=== PATIENT | female | born 1990 | race Caucasian/White ===

== ENCOUNTER 2024-03-29 12:09 | Inpatient (IN) | payer BC ==
[~2024-03-29] VITALS: Ht 157.5 cm; Wt 84.5 kg
[2024-03-30] VITALS (39 sets, daily range): BP systolic 88–158; BP diastolic 54–84; PULSE 68–95; TEMP 97.5–98.1
--- NOTE | 2024-03-30 06:25 | NUR ---
PATIENT AMBULATORY TO UNIT WITH SPOUSE, AR. PATIENT ORIENTED TO LABOR ROOM 4 AND ASSISTED INTO A GOWN. PATIENT DENIES CONTRACTIONS, LEAKING OF FLUID OR VAGINAL BLEEDING AND REPORTS GOOD MOVEMENT. EFM AND TOCO PLACED AND TRACING WELL. ASSESSMENTS COMPLETED, CONSENTS SIGNED.
[2024-03-30] MEDS ORDERED: LR 1,000 ML IV SCH (06:30)
[2024-03-30] MEDS ORDERED: LR & Oxytocin 500 ML IV SCH (06:30)
[2024-03-30] MEDS ORDERED: PRENATAL (06:42)
[2024-03-30] MEDS ORDERED: WOMEN'S DAILY1 TAB PO (06:42)
[2024-03-30] MEDS ORDERED: ASPIRIN 81M81 MG/TA2 PO (06:43)
[2024-03-30] MEDS ORDERED: NATURAL IRON65 MG (06:43)
[2024-03-30 08:11] LABS: HEMOGLOBIN 10.5 g/dl (12.5-16.0); MEAN CELL VOLUME 89 fl (80.0-100.0); MEAN CORPUSCULAR HEMOGLOBIN 29 pg (27-31); MEAN CORPUSCULAR HGB CONC 33 g/dl (33.0-37.0); MEAN PLATELET VOLUME 11.4 fl (7.4-10.4); PLATELET COUNT 184 K/mm3 (130-400); RED BLOOD COUNT 3.61 M/mm3 (4.10-5.30); REDCELL DISTRIBUTION WIDTH-CV 13.9 % (11.5-14.5)
[2024-03-30 08:15] LABS: HEMATOCRIT 32.2 % (37.0-47.0)
--- NOTE | 2024-03-30 08:49 | NUR ---
AT BEDSIDE TO ASSESS PATIENT PROGRESS. SVE 1-2/70/-2, AROM AT THIS TIME.
[2024-03-30 09:25] LABS: BAND 1 % (0-10); EOSINOPHIL 1 % (0-4); LYMPHOCYTE 21 % (20.0-51.0); NEUTROPHILS 75 % (42.0-75.2)
[2024-03-30 09:26] LABS: PLATELET ESTIMATE NORMAL (NORMAL)
--- NOTE | 2024-03-30 09:57 | NUR ---
PATIENT CALLS OUT REQUESTING EPIDURAL, LAWRENCE NOTIFIED, LR BOLUS STARTED
[2024-03-30] MEDS ORDERED: ROPivacaine PF 0.2% 200 ML IV ONE (10:15)
--- NOTE | 2024-03-30 10:30 | NUR ---
1020- ALBAN BRAVO AT BEDSIDEFOR EPIDURAL PLACEMENT. PATIENT SITTING UPRIGHT ON SIDE OF BED. DIFFICULTY TRACING FHR DUE TO MATERNAL POSITION. 1024- SINGLE SHOT ADMINISTERED BY ALBAN BRAVO 1030- PATIENT REPOSITIONED TO WEDGED RIGHT. FHR TRACING RESUMES.
[2024-03-30] MEDS ORDERED: Naloxone 0.4 MG/ML VIAL IV PRN ×2 (11:00→14:30)
[2024-03-30] MEDS ORDERED: diphenhydrAMINE 25 MG CAP PO PRN (11:00)
[2024-03-30] MEDS ORDERED: ePHEDrine 50 MG/10 ML VIAL IV PRN (11:00)
[2024-03-30] MEDS ORDERED: Ondansetron 4 MG/2 ML VIAL IV PRN (11:00)
[2024-03-30] MEDS ORDERED: diphenhydrAMINE 50 MG/ML 1 ML VIAL IV PRN (11:00)
--- NOTE | 2024-03-30 13:18 | NUR ---
EPHEDRINE GIVEN, SEE EMAR. FHR DECELERATING, THIS RN REPOSITIONS PATIENT TO LEFT LATERAL, CONTINUED DECELERATION, PATIENT ASSISTED TO RIGHT LATERAL WITH NO IMPROVEMENT, PATIENT REPOSITIONED TO LEFT LATERAL. LR BOLUS STARTED, PITOCIN OFF. NOTIFIED SEE PHYSICIAN NOTIFICATION
[2024-03-30] MEDS ORDERED: Mag/Al Hydrox/Simeth Susp 30 ML CUP PO PRN (14:30)
[2024-03-30] MEDS ORDERED: Magnes Hydrox (MOM) 80 MG/ML 30 ML CUP PO PRN (14:30)
[2024-03-30] MEDS ORDERED: Witch Hazel 50% Pads Bulk TUB TP PRN (14:30)
[2024-03-30] MEDS ORDERED: oxyCODONE 5 MG TAB PO PRN (14:30)
[2024-03-30] MEDS ORDERED: Acetaminophen 500 MG TAB PO PRN (14:30)
[2024-03-30] MEDS ORDERED: Ibuprofen 800 MG TAB PO SCH (14:30)
[2024-03-30] MEDS ORDERED: Loratadine 10 MG TAB PO PRN (14:30)
[2024-03-30] MEDS ORDERED: Measles/Mumps/Rubella Virus Vaccine Live w Diluent 0.5 ML VIAL SQ SCH (14:30)
[2024-03-30] MEDS ORDERED: Phenylephrine/Mineral Oil/Petrolatum 57 GM TUBE RC PRN (14:30)
--- NOTE | 2024-03-30 14:54 | NUR ---
1432- IN PATIENTS ROOM. SVE /+3. PREPARES FOR DELIVERY. 1436- BEGINS PUSHING WITH PATIENT. 1439- FHR DECELERATION INTO THE 100s FOLLOWING PUSH, AWARE. 1447- VACUUM USE DISCUSSED WITH PATIENT, PATIENT AGREES. 2 PULLS WHILE PATIENT PUSHES, 1 POPOFF, TOTAL OF 50 SECONDS OF VACUUM SUCTION APPLIED. HEAD AT PERINEUM, OFFERS PATIENT TO PUSH BABY OUT WITHOUT VACUUM USE. PATIENT AGREES. 1454- SPONTANEOUS DELIVERY OF INFANT HEAD AND BODY. 1458- SPONTANEOUS DELIVERY OF PLACENTA, PITOCIN STARTED AT 33mU/HR ORDERED AND PER PROTOCOL, THIS RN PROVIDES FUNDAL PRESSURE BY REQUEST.
[2024-03-30] MEDS ORDERED: MOTRIN 800800 MG/TAB PO (15:21)
[2024-03-30] MEDS ORDERED: Sennosides/Docusate 8.6-50 MG TAB PO SCH (17:00)
--- NOTE | 2024-03-30 17:15 | NUR ---
THIS RN TO PATIENTS ROOM TO ATTEMPT TO AMBUALTE PATIENT, PATIENT ASSISTED TO DANGLE WITHOUT FEELING LIGHTHEADED. DEEPAKN ASSISTED TO STAND AND IS UNABLE TO SUPPORT FULL WEIGHT ON HER LEFT LEGS, PATIENT ASSISTED BACK TO DANGLE. THIS RN ASSISTS PATIENT INTO A CLEAN GOWN, ICE PACK PAD AND MESH UNDERWEAR SITTING ON THE BED. PATIENT IS ASSISTED TO A WHEELCHAIR TO ROOM 215. PATIENT ORIENTED TO ROOM AND ASSISTED INTO BED. PATIENT ENCOURAGED TO CALL WITH ANY CONCERNS OR DESIRE TO AMBULATE.
[2024-03-30] MEDS ORDERED: traZODone 50 MG TAB PO PRN (21:00)
[2024-03-30] MEDS ORDERED: Rho(D) Imm Globulin 1,500 UNITS (300 MCG)/2 ML SYRINGE IV\\IM SCH (22:00)
[2024-03-31 00:14] VITALS: BP 115/71; PULSE 85; TEMP 97.7
[2024-03-31 07:45] VITALS: BP 115/65; PULSE 85; TEMP 98.5
== END 2024-03-31 17:10 | disposition home or self-care (01) | DRG 807 ==
LOC: LDR 03-30 06:17 → OB 03-30 12:09
PROVIDERS: ADMIT Obstetrics & Gynecology
PROC: 10D07Z6 Extraction of Products of Conception, Vacuum, Via Natural or Artificial Opening (ICD-10-PCS; principal; 2024-03-30)
PROC: 0KQM0ZZ Repair Perineum Muscle, Open Approach (ICD-10-PCS; 2024-03-30)
PROC: 3E033VJ Introduction of Other Hormone into Peripheral Vein, Percutaneous Approach (ICD-10-PCS; 2024-03-30)
PROC: 10907ZC Drainage of Amniotic Fluid, Therapeutic from Products of Conception, Via Natural or Artificial Opening (ICD-10-PCS; 2024-03-30)
DX: O36.63X0 Maternal care for excessive fetal growth, third trimester, not applicable or unspecified (principal); Z37.0 Single live birth; Z3A.39 39 weeks gestation of pregnancy; O26.893 Other specified pregnancy related conditions, third trimester; O76 Abnormality in fetal heart rate and rhythm complicating labor and delivery; O70.1 Second degree perineal laceration during delivery; E78.5 Hyperlipidemia, unspecified; O99.284 Endocrine, nutritional and metabolic diseases complicating childbirth; Z67.41 Type O blood, Rh negative
CPT/HCPCS: J2590; J2791; J2795; J7120